=== PATIENT | female | born 1980 | race Caucasian/White ===

== ENCOUNTER 2016-09-15 05:15 | Emergency (ER) | payer MEDICAID ==
[~2016-09-15] VITALS: Ht 160 cm; Wt 61.2 kg
[2016-09-15 05:59] VITALS: BP 118/65; PULSE 87; RESP 18; TEMP 97.8; O2SAT 96
--- NOTE | 2016-09-15 05:59 | NUR ---
Patient to ER bed 8 to gown for evaluation. Side rails up.
[2016-09-15] MEDS ORDERED: PROCHLORPERAZINE EDISYLATE 10 MG/2 ML VIAL IVP ONE (06:00)
[2016-09-15] MEDS ORDERED: KETOROLAC TROMETHAMINE 30 MG VIAL IVP ONE (06:00)
[2016-09-15] MEDS ORDERED: DIPHENHYDRAMINE INJ 50 MG/ML VIAL IVP ONE (06:00)
--- NOTE | 2016-09-15 06:00 | NUR ---
PT IS AOX4, C/O HYPOGASTRIC PAIN THAT RADIATES HER BACK X 2 DAYS WITH N/V. PAIN SCALE 8/10.
[2016-09-15 06:06] LABS: BASOPHILS # (AUTO) 0.1 K/uL (0.0-0.2); BASOPHILS % (AUTO) 0.7 % (0.0-2.0); EOSINOPHILS # (AUTO) 0.3 K/uL (0.0-0.4); EOSINOPHILS % (AUTO) 2.6 % (0.0-4.0); HEMOGLOBIN 13.4 g/dL (12.0-16.0); LYMPHOCYTES # (AUTO) 1.8 K/uL (1.0-5.5); LYMPHOCYTES % (AUTO) 18.5 % (20.5-51.5); MEAN CORPUSCULAR HEMOGLOBIN 30 pg (27-31); MEAN CORPUSCULAR HGB CONC 33 % (32-36); MEAN CORPUSCULAR VOLUME 91 fL (79.0-98.0); MONOCYTES # (AUTO) 0.9 K/uL (0.0-1.0); MONOCYTES % (AUTO) 9.7 % (1.7-9.3); NEUTROPHILS # (AUTO) 6.5 K/uL (1.8-7.7); NEUTROPHILS % (AUTO) 68.5 % (40.0-70.0); PLATELET COUNT (AUTO) 250 K/uL (130-430); RED CELL DISTRIBUTION WIDTH 13.2 % (9.0-15.0); WHITE BLOOD COUNT (AUTO) 9.6 K/uL (4.8-10.8)
--- NOTE | 2016-09-15 06:10 | NUR ---
ER at bedside examining patient.
[2016-09-15 06:12] LABS: CALCIUM 8.6 mg/dL (8.4-11.0); CREATININE 0.78 mg/dL (0.55-1.30); POTASSIUM 3.5 mmol/L (3.5-5.1)
[2016-09-15 06:17] LABS: ALBUMIN 3.6 g/dL (3.4-4.8); TOTAL BILIRUBIN 0.2 mg/dL (0.0-1.0); TOTAL PROTEIN, SERUM 7.6 g/dL (6.4-8.3)
[2016-09-15 06:25] LABS: BILIRUBIN,URINE NEGATIVE (NEGATIVE); BLOOD, URINE 2+ (NEGATIVE); CLARITY/URINE CLOUDY (CLEAR); COLOR,URINE YELLOW (YELLOW); GLUCOSE,URINE NEGATIVE (NEGATIVE); KETONES,URINE NEGATIVE (NEGATIVE); LEUKOCYTE ESTERASE ,URINE 3+ (NEGATIVE); NITRITE, URINE POSITIVE (NEGATIVE); PROTEIN URINE 2+ (NEGATIVE); UROBILINOGEN,URINE 0.2 (0.2-1.0)
[2016-09-15 06:37] LABS: BACTERIA,URINE MODERATE /HPF (None Seen); MUCUS,URINE None Seen /LPF (None Seen); WBC,URINE >100 /HPF (0-3); YEAST,URINE Rare /HPF (None Seen)
[2016-09-15] MEDS ORDERED: cefTRIAXone 1 GM IVPB PREMIX 50 ML IV ONE (07:00)
[2016-09-15 07:25] VITALS: BP 111/62; PULSE 77; RESP 18; TEMP 97.8; O2SAT 99
--- NOTE | 2016-09-15 07:25 | NUR ---
Patient given written and verbal discharge instructions and verbalizes understanding. ER MD discussed with patient the results and treatment provided. Patient in stable condition. ID arm band removed. IV catheter removed intact and dressing applied, no active bleeding. Rx of MACROBID CAPSULE given. Patient educated on pain management and to follow up with PMD. Pain Scale 0/10. Opportunity for questions provided and answered.
== END 2016-09-15 07:25 | disposition home or self-care (01) ==
LOC: SED 05:15
DX: N39.0 Urinary tract infection, site not specified (principal); R31.9 Hematuria, unspecified; E03.9 Hypothyroidism, unspecified; Z88.6 Allergy status to analgesic agent
CPT/HCPCS: 36415; 80053; 81000; 81025; 82150; 83690; 85025; 87040; 87086; 96365; 96375; 99285; J0696; J0780; J1200; J1885; 87186-TC

== ENCOUNTER 2016-12-25 12:03 | Emergency (ER) | payer MEDICAID ==
[~2016-12-25] VITALS: Ht 160 cm; Wt 59.0 kg
[2016-12-25 12:05] VITALS: BP 133/97; PULSE 91; RESP 18; TEMP 98; O2SAT 100
--- NOTE | 2016-12-25 12:05 | NUR ---
BROUGHT BACK TO BED #4 AND TRIAGED. REPORT GIVEN TO VINCE
--- NOTE | 2016-12-25 12:27 | NUR ---
DR NUÑEZ AT BEDSIDE FOR EVALUATION
--- NOTE | 2016-12-25 12:43 | NUR ---
DR NUÑEZ AT BEDSIDE FOR PROCEDURE.
[2016-12-25] MEDS ORDERED: traMADol HCL HCL 50 MG TABLET (ULTRAM) PO ONE (12:45)
[2016-12-25] MEDS ORDERED: BUPIVACAINE /PF 0.25% 30 ML VIAL INJ ONE (12:45)
--- NOTE | 2016-12-25 12:56 | NUR ---
DR NUÑEZ AT BEDSIDE FOR RE-EVALUATION
[2016-12-25 14:03] VITALS: BP 127/71; PULSE 77; RESP 18; O2SAT 99
--- NOTE | 2016-12-25 14:04 | NUR ---
Patient given written and verbal discharge instructions and verbalizes understanding. ER MD discussed with patient the results and treatment provided. Patient in stable condition. ID arm band removed. Rx of TRAMADOL, AUGMENTIN given. Patient educated on pain management and to follow up with PMD. Pain Scale 0/10. Opportunity for questions provided and answered.
== END 2016-12-25 14:04 | disposition home or self-care (01) ==
LOC: SED 12:03
DX: K02.9 Dental caries, unspecified (principal); E03.9 Hypothyroidism, unspecified; Z88.6 Allergy status to analgesic agent; Z98.890 Other specified postprocedural states
CPT/HCPCS: 99283; J3490

== ENCOUNTER 2017-02-05 16:15 | Inpatient (IN) | payer MEDICAID ==
[~2017-02-05] VITALS: Ht 160 cm; Wt 59.0 kg
[2017-02-05 16:52] VITALS: BP_SYST 125
[2017-02-05] MEDS ORDERED: PIPERACILLIN/TAZO 3.38 GM in NS 50 ML IV ONE (17:15)
[2017-02-05] MEDS ORDERED: DIPHENHYDRAMINE INJ 50 MG/ML VIAL IVP ONE (17:15)
[2017-02-05] MEDS ORDERED: MORPHINE 4 MG/ML INJ. SYRINGE IVP ONE (17:15)
[2017-02-05] MEDS ORDERED: NACL 0.9% 1,000 ML IV ONE (17:15)
[2017-02-05] MEDS ORDERED: PIPERACILLIN/TAZOBACTAM 3.375 GM/VIAL (ZOSYN) IV ONE (17:32)
[2017-02-05 17:46] LABS: BASOPHILS % (AUTO) 0.3 % (0.0-2.0); EOSINOPHILS # (AUTO) 0.1 K/uL (0.0-0.4); EOSINOPHILS % (AUTO) 0.6 % (0.0-4.0); HEMOGLOBIN 11.2 g/dL (12.0-16.0); LYMPHOCYTES # (AUTO) 0.9 K/uL (1.0-5.5); LYMPHOCYTES % (AUTO) 7.2 % (20.5-51.5); MEAN CORPUSCULAR HEMOGLOBIN 30 pg (27-31); MEAN CORPUSCULAR HGB CONC 33 % (32-36); MEAN CORPUSCULAR VOLUME 90 fL (79.0-98.0); MONOCYTES # (AUTO) 0.7 K/uL (0.0-1.0); MONOCYTES % (AUTO) 5.7 % (1.7-9.3); NEUTROPHILS # (AUTO) 10.5 K/uL (1.8-7.7); NEUTROPHILS % (AUTO) 86.2 % (40.0-70.0); PLATELET COUNT (AUTO) 136 K/uL (130-430); RED BLOOD CELL COUNT(AUTO) 3.78 MIL/uL (4.2-6.2); WHITE BLOOD COUNT (AUTO) 12.2 K/uL (4.8-10.8)
[2017-02-05 17:51] LABS: PROTHROMBIN TIME 10.8 SECS (9.5-12.5)
[2017-02-05 18:01] LABS: CALCIUM 7.7 mg/dL (8.4-11.0); CREATININE 0.73 mg/dL (0.55-1.30)
[2017-02-05 18:06] LABS: ALBUMIN 2.6 g/dL (3.4-4.8); TOTAL BILIRUBIN 0.6 mg/dL (0.0-1.0); TOTAL PROTEIN, SERUM 6.4 g/dL (6.4-8.3)
[2017-02-05 18:06] LABS: BILIRUBIN,URINE NEGATIVE (NEGATIVE); CLARITY/URINE HAZY (CLEAR); COLOR,URINE AMBER (YELLOW); GLUCOSE,URINE NEGATIVE (NEGATIVE); KETONES,URINE NEGATIVE (NEGATIVE); LEUKOCYTE ESTERASE ,URINE 2+ (NEGATIVE); NITRITE, URINE POSITIVE (NEGATIVE); PROTEIN URINE 1+ (NEGATIVE)
[2017-02-05 18:14] LABS: POTASSIUM 2.9 mmol/L (3.5-5.1)
[2017-02-05] MEDS ORDERED: POTASSIUM CHLORIDE 20 MEQ TAB.PRT.SR PO ONE (18:15)
[2017-02-05 18:19] LABS: BLOOD, URINE TRACE (NEGATIVE); UROBILINOGEN,URINE >=8 (0.2-1.0)
[2017-02-05 18:20] LABS: BACTERIA,URINE MANY /HPF (None Seen); MUCUS,URINE None Seen /LPF (None Seen); RBC,URINE 0-3 /HPF (0-3); WBC,URINE 50-80 /HPF (0-3)
[2017-02-05] MEDS ORDERED: NACL 0.9% 1,000 ML IV SCH (19:29)
[2017-02-05] MEDS ORDERED: ACETAMINOPHEN 325 MG TABLET PO PRN (19:30)
[2017-02-05 21:20] VITALS: BP_SYST 122
[2017-02-06] MEDS ORDERED: PIPERACILLIN/TAZO 3.375/DEX-IS 50 ML IV SCH
== END 2017-02-05 22:15 | disposition left against medical advice (07) | DRG 463 ==
LOC: SED 16:15 → STU 19:24
PROVIDERS: ADMIT Internal Medicine; ATTEND Internal Medicine
DX: N12 Tubulo-interstitial nephritis, not specified as acute or chronic (principal); F15.10 Other stimulant abuse, uncomplicated; F12.10 Cannabis abuse, uncomplicated; E03.9 Hypothyroidism, unspecified; M79.7 Fibromyalgia; Z53.21 Procedure and treatment not carried out due to patient leaving prior to being seen by health care provider; Z88.6 Allergy status to analgesic agent
CPT/HCPCS: 36415; 80053; 81000-TC; 83605; 83690-TC; 85025; 85610-TC; 87040-TC; 87086; 87186-TC; 93005; 96361; 96365; 96375; 99285; J1200; J2270; J2543; J7030

== ENCOUNTER 2017-02-06 03:48 | Emergency (ER) | payer MEDICAID ==
[~2017-02-06] VITALS: Ht 160 cm; Wt 59.0 kg
[2017-02-06 03:48] VITALS: BP_SYST 121
== END 2017-02-06 04:00 | disposition left against medical advice (07) ==
LOC: SED 03:48
DX: N12 Tubulo-interstitial nephritis, not specified as acute or chronic (principal); Z88.3 Allergy status to other anti-infective agents
CPT/HCPCS: 99281

== ENCOUNTER 2017-08-08 14:08 | Emergency (ER) | payer MEDICAID ==
[~2017-08-08] VITALS: Ht 160 cm; Wt 68.9 kg
[2017-08-08 14:10] VITALS: BP_SYST 122
[2017-08-08] MEDS ORDERED: KETOROLAC TROMETHAMINE 60 MG/2 ML VIAL IM ONE (16:00)
[2017-08-08] MEDS ORDERED: KETOROLAC TROMETHAMINE 30 MG VIAL IVP ONE (16:15)
[2017-08-08] MEDS ORDERED: NACL 0.9% 1,000 ML IV ONE (16:15)
[2017-08-08 16:35] LABS: BASOPHILS % (AUTO) 0.5 % (0.0-2.0); EOSINOPHILS # (AUTO) 0.1 K/uL (0.0-0.4); EOSINOPHILS % (AUTO) 2.3 % (0.0-4.0); LYMPHOCYTES # (AUTO) 1.6 K/uL (1.0-5.5); LYMPHOCYTES % (AUTO) 31.5 % (20.5-51.5); MEAN CORPUSCULAR HEMOGLOBIN 29 pg (27-31); MEAN CORPUSCULAR HGB CONC 33 % (32-36); MEAN CORPUSCULAR VOLUME 88 fL (79.0-98.0); MONOCYTES # (AUTO) 0.5 K/uL (0.0-1.0); NEUTROPHILS # (AUTO) 2.8 K/uL (1.8-7.7); NEUTROPHILS % (AUTO) 55.7 % (40.0-70.0); RED BLOOD CELL COUNT(AUTO) 4.56 MIL/uL (4.2-6.2); RED CELL DISTRIBUTION WIDTH 15.2 % (9.0-15.0)
[2017-08-08 16:44] LABS: CALCIUM 8.8 mg/dL (8.4-11.0); CREATININE 0.68 mg/dL (0.55-1.30); POTASSIUM 3.6 mmol/L (3.5-5.1)
[2017-08-08 16:49] LABS: ALBUMIN 3.5 g/dL (3.4-4.8); TOTAL BILIRUBIN 0.3 mg/dL (0.0-1.0)
[2017-08-08 16:56] LABS: PLATELET COUNT (AUTO) 276 K/uL (130-430)
[2017-08-08] MEDS ORDERED: HYDROcodone/ACETAMIN 7.5-325 MG TAB PO ONE (17:30)
[2017-08-08 17:52] LABS: BILIRUBIN,URINE NEGATIVE (NEGATIVE); BLOOD, URINE 3+ (NEGATIVE); CLARITY/URINE CLEAR (CLEAR); COLOR,URINE YELLOW (YELLOW); GLUCOSE,URINE NEGATIVE (NEGATIVE); KETONES,URINE NEGATIVE (NEGATIVE); LEUKOCYTE ESTERASE ,URINE NEGATIVE (NEGATIVE); NITRITE, URINE NEGATIVE (NEGATIVE); PH,URINE 5.5 (5.0-8.0); PROTEIN URINE NEGATIVE (NEGATIVE); UROBILINOGEN,URINE 0.2 (0.2-1.0)
[2017-08-08 17:53] LABS: BACTERIA,URINE FEW /HPF (None Seen); WBC,URINE 0-3 /HPF (0-3)
[2017-08-08 17:54] LABS: MUCUS,URINE None Seen /LPF (None Seen)
[2017-08-08 19:00] VITALS: BP_SYST 120
== END 2017-08-08 19:00 | disposition home or self-care (01) ==
LOC: SED 14:08
DX: R25.2 Cramp and spasm (principal); R03.0 Elevated blood-pressure reading, without diagnosis of hypertension; E03.9 Hypothyroidism, unspecified; Z88.6 Allergy status to analgesic agent
CPT/HCPCS: 36415; 80053; 81000; 85025; 96361; 96374; 99284; J1885 ×2; J7030

== ENCOUNTER 2021-01-26 11:03 | Emergency (ER) | payer MEDICAID ==
[~2021-01-26] VITALS: Ht 160 cm; Wt 56.7 kg
[2021-01-26 11:27] VITALS: BP_SYST 139
--- NOTE | 2021-01-26 11:50 | NUR ---
Patient triaged and placed in waiting room. VSS and patient appears in no acute distress at this time. Accompanied by partner , awaiting available bed, and MD notified of need for MSE.
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
[2021-01-26] MEDS ORDERED: AZITHROMYCIN 250 MG TABLET PO ONE (14:45)
[2021-01-26] MEDS ORDERED: cefTRIAXone 0.75 GM in LIDOCAINE 1%, 20 ML MDV 2.1 ML IM ONE (14:45)
--- NOTE | 2021-01-26 15:30 | NUR ---
Dr Gomez evaluating patient at bedside
[2021-01-26 16:14] VITALS: BP_SYST 139
--- NOTE | 2021-01-26 16:14 | NUR ---
Patient given written and verbal discharge instructions and verbalizes understanding. ER MD discussed with patient the results and treatment provided. Patient in stable condition. ID arm band removed. No Rx given. Patient educated on pain management and to follow up with PMD. Pain Scale 0/10. Opportunity for questions provided and answered. Medication side effect fact sheet provided.
[2021-01-28 01:06] LABS: CHLAMYDIA TRACHOMATIS NAA Negative (Negative); NEISSERIA GONORRHOEAE NAA Negative (Negative)
== END 2021-01-26 16:14 | disposition home or self-care (01) ==
LOC: SED 11:03
DX: Z20.2 Contact with and (suspected) exposure to infections with a predominantly sexual mode of transmission (principal); Z79.899 Other long term (current) drug therapy
CPT/HCPCS: 87491; 87591; 96372; 99283; J0696; J2001; Q0144

== ENCOUNTER 2021-06-16 01:41 | Emergency (ER) | payer MEDICAID ==
[~2021-06-16] VITALS: Ht 160 cm; Wt 61.2 kg
[2021-06-16 02:10] VITALS: BP_SYST 118
--- NOTE | 2021-06-16 02:28 | NUR ---
PT ARRIVED TO ER FOR A STD/HIV TEST. PT IS REQUESTING TO HAVE ALL THE TESTS DONE TO MAKE SURE SHE HAS NO STDs. A&OX4. ACCOMPANIED BY PARTNER AT BEDSIDE.
--- NOTE | 2021-06-16 02:35 | NUR ---
ER at bedside examining patient.
[2021-06-16] MEDS ORDERED: BICT1TAB PO (03:13)
--- NOTE | 2021-06-16 03:37 | NUR ---
LAB AT BEDSIDE
[2021-06-16 03:57] VITALS: BP_SYST 122
--- NOTE | 2021-06-16 03:58 | NUR ---
Patient given written and verbal discharge instructions and verbalizes understanding. ER MD discussed with patient the results and treatment provided. Patient in stable condition. ID arm band removed. Rx of BIKTARVY given. Patient educated on pain management and to follow up with PMD. Pain ScaLE 0/10. Opportunity for questions provided and answered. Medication side effect fact sheet provided.
[2021-06-19 01:06] LABS: CHLAMYDIA TRACHOMATIS NAA Negative (Negative); NEISSERIA GONORRHOEAE NAA Negative (Negative)
== END 2021-06-16 03:58 | disposition home or self-care (01) ==
LOC: SED 01:41
DX: Z20.2 Contact with and (suspected) exposure to infections with a predominantly sexual mode of transmission (principal); E03.9 Hypothyroidism, unspecified; Z79.899 Other long term (current) drug therapy; Z88.8 Allergy status to other drugs, medicaments and biological substances
CPT/HCPCS: 36415; 84443; 86592; 87491; 87591; 99283

== ENCOUNTER 2021-07-13 18:36 | Emergency (ER) | payer MEDICAID ==
[~2021-07-13] VITALS: Ht 160 cm; Wt 61.2 kg
[~2021-07-13 18:36] MED LIST: BICT1TAB PO
--- NOTE | 2021-07-13 18:36 | NUR ---
RIAN BACK TO BED #5 AND TRIAGED. REPORT GIVEN TO JAGRUTI
[2021-07-13 18:40] VITALS: BP_SYST 132; BP_SYST 198
--- NOTE | 2021-07-13 18:51 | NUR ---
DR HUGGINS AT BEDSIDE FOR EVALUATION
[2021-07-13] MEDS ORDERED: NEOM28.36 TP (19:03)
[2021-07-13] MEDS ORDERED: ALPR0.5T PO (19:03)
[2021-07-13] MEDS ORDERED: IBUP-1969 PO (19:04)
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
[2021-07-13] MEDS: ALPRAZolam 0.25 MG TABLET PO ONE (19:12)
[2021-07-13] MEDS ORDERED: ALPRAZolam 0.25 MG TABLET ONE (19:14)
--- NOTE | 2021-07-13 19:14 | NUR ---
REPORT TO TREE FERRELL
[2021-07-13 19:30] VITALS: BP_SYST 132
--- NOTE | 2021-07-13 19:30 | NUR ---
Patient given written and verbal discharge instructions and verbalizes understanding. ER MD discussed with patient the results and treatment provided. Patient in stable condition. ID arm band removed. Rx of Xanax, Neosporin given. Patient educated on pain management and to follow up with PMD. Pain Scale 0/10 Opportunity for questions provided and answered. Medication side effect fact sheet provided.
== END 2021-07-13 19:30 | disposition home or self-care (01) ==
LOC: SED 18:36
DX: T23.501A Corrosion of first degree of right hand, unspecified site, initial encounter (principal); T23.502A Corrosion of first degree of left hand, unspecified site, initial encounter; F41.9 Anxiety disorder, unspecified; E03.9 Hypothyroidism, unspecified; Z79.899 Other long term (current) drug therapy; Y92.89 Other specified places as the place of occurrence of the external cause
CPT/HCPCS: 99283

== ENCOUNTER 2021-09-10 07:12 | Emergency (ER) | payer MEDICAID ==
[~2021-09-10] VITALS: Ht 160 cm; Wt 61.2 kg
[2021-09-10 07:12] VITALS: BP_SYST 138
[~2021-09-10 07:12] MED LIST changes: +ALPR0.5T PO; +IBUP-1969 PO; +NEOM28.36 TP
--- NOTE | 2021-09-10 07:12 | NUR ---
Patient triaged and placed in waiting room. VSS and patient appears in no acute distress at this time. Accompanied by SELF, awaiting available bed, and MD notified of need for MSE.
--- NOTE | 2021-09-10 07:25 | NUR ---
PT STATES RIGHT HAND PAIN, DENIES ANY INJURY OR TRAUMA.
--- NOTE | 2021-09-10 08:20 | NUR ---
DR ZUÑIGA OUT TO TRIAGE FOR EVALUATION
[2021-09-10] MEDS ORDERED: TRAM50TA PO ×3 (08:27→08:35)
--- NOTE | 2021-09-10 08:45 | NUR ---
Patient given written and verbal discharge instructions and verbalizes understanding. ER MD discussed with patient the results and treatment provided. Patient in stable condition. ID arm band removed. Rx of TRAMADOL given. Patient educated on pain management and to follow up with PMD. Pain Scale 0/10. Opportunity for questions provided and answered. Medication side effect fact sheet provided. PT LEFT WITHOUT SIGNING PAPERWORK
== END 2021-09-10 08:45 | disposition home or self-care (01) ==
LOC: SED 07:12
DX: G56.03 Carpal tunnel syndrome, bilateral upper limbs (principal); Z88.6 Allergy status to analgesic agent
CPT/HCPCS: 99283

== ENCOUNTER 2021-09-12 13:45 | Emergency (ER) | payer MEDICAID, SELFPAY ==
[~2021-09-12] VITALS: Ht 160 cm; Wt 61.2 kg
[~2021-09-12 13:45] MED LIST changes: +TRAM50TA PO
[2021-09-12 14:00] VITALS: BP_SYST 126
--- NOTE | 2021-09-12 14:00 | NUR ---
Pt triaged in waiting room and brought back ambulatory to H1.
--- NOTE | 2021-09-12 14:06 | NUR ---
Pt noted to be very restless upon face to face assessment. Awake and alert, oriented x 3. Reporting numbness to both hands x 3 days. Denies current medical problems. Awaiting MD hamm.
[2021-09-12 14:16] VITALS: BP_SYST 126
--- NOTE | 2021-09-12 14:29 | NUR ---
Dr Pritchard to bedside to assess patient
[2021-09-12 15:26] LABS: HEMOGLOBIN 10.8 g/dL (12.0-16.0); PLATELET COUNT (AUTO) 295 K/uL (130-430)
[2021-09-12 15:27] LABS: ANION GAP 6 (5-15); CALCIUM 7.9 mg/dL (8.4-11.0); CHLORIDE 108 mmol/L (98-107); CREATININE 0.61 mg/dL (0.55-1.30); GLUCOSE 95 mg/dL (70-99); POTASSIUM 3.6 mmol/L (3.5-5.1); SODIUM SERUM 139 mmol/L (136-145); UREA NITROGEN, BLOOD 13 mg/dL (8-21)
[2021-09-12 15:32] LABS: BASOPHILS % (AUTO) 0.7 % (0.0-2.0); EOSINOPHILS # (AUTO) 0.1 K/uL (0.0-0.4); EOSINOPHILS % (AUTO) 3.5 % (0.0-4.0); HEMATOCRIT 33.4 % (36-48); LYMPHOCYTES # (AUTO) 1.5 K/uL (1.0-5.5); LYMPHOCYTES % (AUTO) 36.8 % (20.5-51.5); MEAN CORPUSCULAR HEMOGLOBIN 27 pg (27-31); MEAN CORPUSCULAR HGB CONC 32 % (32-36); MEAN CORPUSCULAR VOLUME 85 fL (79.0-98.0); MONOCYTES # (AUTO) 0.7 K/uL (0.0-1.0); MONOCYTES % (AUTO) 16.3 % (1.7-9.3); NEUTROPHILS # (AUTO) 1.8 K/uL (1.8-7.7); NEUTROPHILS % (AUTO) 42.7 % (40.0-70.0); RED BLOOD CELL COUNT(AUTO) 3.93 MIL/uL (4.2-6.2); RED CELL DISTRIBUTION WIDTH 17.7 % (9.0-15.0); WHITE BLOOD COUNT (AUTO) 4.2 K/uL (4.8-10.8)
[2021-09-12 15:33] LABS: ALANINE AMINOTRANSFERASE 38 U/L (12-78); ALBUMIN 2.8 g/dL (3.4-4.8); ASPARTATE AMINOTRANSFERASE 30 U/L (10-37); TOTAL BILIRUBIN 0.2 mg/dL (0.0-1.0)
[2021-09-12 15:34] LABS: GFR AFRICAN AMERICAN 140 mL/min (>90)
--- NOTE | 2021-09-12 15:39 | NUR ---
Pt walked toward ER doors and stated "I am going to talk to my mom...you don't have rights to me." This RN attempted to educate patient to stay in ER as she is awaiting lab results. Pt not receptive to education. Dr Pritchard informed.
--- NOTE | 2021-09-12 15:39 | NUR ---
Luis guillaume. crop pest control specialist and Dr Pritchard aware.
[2021-09-12 16:12] LABS: ERYTHROCYTE SEDIMENTATION RATE 13 MM/HR (0-20)
[2021-09-12 17:36] LABS: BILIRUBIN,URINE NEGATIVE (NEGATIVE); BLOOD, URINE NEGATIVE (NEGATIVE); CLARITY/URINE CLEAR (CLEAR); COLOR,URINE YELLOW (YELLOW); GLUCOSE,URINE TRACE (NEGATIVE); KETONES,URINE NEGATIVE (NEGATIVE); LEUKOCYTE ESTERASE ,URINE NEGATIVE (NEGATIVE); NITRITE, URINE NEGATIVE (NEGATIVE); PH,URINE 6.5 (5.0-8.0); PROTEIN URINE NEGATIVE (NEGATIVE); UROBILINOGEN,URINE 0.2 (0.2-1.0)
[2021-09-12 17:54] LABS: BARBITURATE, URINE NEGATIVE (NEG <=200); URINE AMPHETAMINE POSITIVE (NEG <=500)
[2021-09-12 17:55] LABS: BENZODIAZEPINE, URINE NEGATIVE (NEG <=150); CANNABINOID, URINE NEGATIVE (NEG <=50); COCAINE, URINE NEGATIVE (NEG <=150); METHAMPHETAMINES SCREEN,URINE NEGATIVE (NEG <=500); OPIATE, URINE NEGATIVE (NEG <=100); PHENCYCLIDINE SCREEN,URINE NEGATIVE (NEG <=25); UR TRICYCLIC ANTIDEPRESSANTS NEGATIVE (NEG <=300); URINE METHADONE NEGATIVE (NEG <=200); URINE OXYCODONE SCREEN NEGATIVE (NEG <=100); URINE PROPOXYPHENE SCREEN NEGATIVE (NEG <=300)
[2021-09-12 19:57] LABS: C-REACTIVE PROTEIN QUANT < 0.2 mg/dL (0-0.5)
[2021-09-13] MEDS ORDERED: GABA800T PO (15:48)
== END 2021-09-12 15:39 | disposition home or self-care (01) ==
LOC: SED 13:45
DX: G56.03 Carpal tunnel syndrome, bilateral upper limbs (principal); Z88.6 Allergy status to analgesic agent; Z79.899 Other long term (current) drug therapy
CPT/HCPCS: 36415; 80053; 80307; 81003; 85025; 85651-TC; 86140; 99283

== ENCOUNTER 2021-09-12 16:49 | Emergency (ER) | payer MEDICAID, SELFPAY ==
[2021-09-13] MEDS ORDERED: GABA800T PO (15:48)
== END 2021-09-12 16:52 | disposition left against medical advice (07) ==
LOC: SED 16:49
DX: M79.643 Pain in unspecified hand (principal); Z53.21 Procedure and treatment not carried out due to patient leaving prior to being seen by health care provider

== ENCOUNTER 2021-09-13 15:04 | Emergency (ER) | payer MEDICAID, SELFPAY ==
[~2021-09-13] VITALS: Ht 154.9 cm; Wt 59.9 kg
--- NOTE | 2021-09-13 15:24 | NUR ---
Patient to ER bed 03 to gown for evaluation. Side rails up.
[2021-09-13 15:25] VITALS: BP_SYST 132
--- NOTE | 2021-09-13 15:30 | NUR ---
Pt in bed resting c/o numbess sensation on bilateral hands. No edema noted, cap refill <3 seconds, and pt has no loss of sensation. A&Ox4. Pupils PERRLA. Skin intact. Ambulatory with steady gait. No chest pain and no sob. Denies n/v. Bed in lowest position. Warm blanket given. VSS.
--- NOTE | 2021-09-13 15:35 | NUR ---
ER physician at bedside.
[2021-09-13] MEDS ORDERED: GABA800T PO (15:48)
[2021-09-13 15:56] VITALS: BP_SYST 132
--- NOTE | 2021-09-13 15:57 | NUR ---
Patient given written and verbal discharge instructions and verbalizes understanding. ER MD discussed with patient the results and treatment provided. Patient in stable condition. ID arm band removed. IV catheter removed intact and dressing applied, no active bleeding. Rx of Gabapentin given. Patient educated on pain management and to follow up with PMD. Pain Scale . Opportunity for questions provided and answered. Medication side effect fact sheet provided.
== END 2021-09-13 15:56 | disposition home or self-care (01) ==
LOC: SED 15:04
DX: M79.641 Pain in right hand (principal); M79.642 Pain in left hand; E03.9 Hypothyroidism, unspecified; Z88.8 Allergy status to other drugs, medicaments and biological substances; Z79.899 Other long term (current) drug therapy
CPT/HCPCS: 99283